=== PATIENT | female | born 1960 | race Caucasian/White ===

== ENCOUNTER → 2020-01-25 | Outpatient (CLI) | payer OTHER | END | disposition home or self-care (01) | LOC: OLS 12:18 → LAB SHORT 12:18 | DX: N18.2 Chronic kidney disease, stage 2 (mild) (principal) | CPT/HCPCS: 82043 ==

== ENCOUNTER 2021-11-08 13:26 | Day surgery (SDC) | payer OTHER ==
[~2021-11-08] VITALS: Ht 170.2 cm; Wt 73.2 kg
[~2021-11-08 13:26] MED LIST: AMLO5 PO; Avapro300 MG PO; CATAPRES0.1 MG PO; Crestor20 MG PO; FAMO20 PO; FURO20 PO; POTCHL20ER PO; SERT25 PO
== END 2021-11-08 15:19 | disposition home or self-care (01) ==
LOC: ORSCSDS 13:26
PROVIDERS: Surgery
PROC: 0DB68ZX Excision of Stomach, Via Natural or Artificial Opening Endoscopic, Diagnostic (ICD-10-PCS; principal; 2021-11-08 14:30)
PROC: 0DBM8ZX Excision of Descending Colon, Via Natural or Artificial Opening Endoscopic, Diagnostic (ICD-10-PCS; principal; 2021-11-08 14:30)
DX: Z12.11 Encounter for screening for malignant neoplasm of colon (principal); D64.9 Anemia, unspecified; K21.9 Gastro-esophageal reflux disease without esophagitis; D12.4 Benign neoplasm of descending colon; F41.1 Generalized anxiety disorder; Z86.16 Personal history of COVID-19; E78.5 Hyperlipidemia, unspecified; I12.9 Hypertensive chronic kidney disease with stage 1 through stage 4 chronic kidney disease, or unspecified chronic kidney disease; N18.32 Chronic kidney disease, stage 3b; Z79.899 Other long term (current) drug therapy
CPT/HCPCS: 88305; 88342; J2250; J2704; J7120